=== PATIENT | female | born 1995 | race Caucasian/White ===

== ENCOUNTER 2017-11-02 07:29 | Emergency (ER) | payer BC, MEDICAID ==
[~2017-11-02] VITALS: Ht 170.2 cm; Wt 100.0 kg
[2017-11-02] MEDS ORDERED: ACETAMINOPHEN 325MG TABLET PO ONE (10:45)
[2017-11-02 10:59] VITALS: BP 128/72
== END 2017-11-02 11:01 | disposition home or self-care (01) ==
LOC: ER 07:44
DX: L73.1 Pseudofolliculitis barbae (principal)
CPT/HCPCS: 81025; 99282

== ENCOUNTER 2018-08-20 23:35 | Emergency (ER) | payer BC, MEDICAID ==
[~2018-08-20] VITALS: Ht 170.2 cm; Wt 95.0 kg
[2018-08-21 04:45] VITALS: BP 118/70
== END 2018-08-21 04:45 | disposition home or self-care (01) ==
LOC: ER 23:35
DX: R06.9 Unspecified abnormalities of breathing (principal)
CPT/HCPCS: 71045; 81025; 99283

== ENCOUNTER 2019-11-03 10:10 | Emergency (ER) | payer BC, MEDICAID ==
[~2019-11-03] VITALS: Ht 170.2 cm; Wt 95.0 kg
[2019-11-03] MEDS ORDERED: SODIUM CHLORIDE 0.9% 1,000 ML IV ONE (15:08)
[2019-11-03] MEDS ORDERED: IBUPROFEN 600MG TABLET PO STA (15:08)
[2019-11-03] MEDS ORDERED: ACETAMINOPHEN 325MG TABLET PO STA (15:08)
[2019-11-03 15:29] LABS: CHLORIDE 104 mEq/L (98-107)
[2019-11-03 15:30] LABS: HEMATOCRIT. 37.3 % (36.0-48.0); HEMOGLOBIN. 12.7 g/dL (12.0-16.0); MEAN CORPUSCULAR HEMOGLOBIN 28.9 pg (28.0-32.0); MEAN CORPUSCULAR VOLUME 85.3 fL (81.0-99.0); MEAN PLATELET VOLUME 7.7 fl (7.4-10.4); PLATELET 262 x1000/uL (130-400); RED BLOOD CELL COUNT 4.38 mill/uL (4.2-5.4); RED CELL DISTRIBUTION WIDTH 13.8 % (11.6-14.6)
[2019-11-03 16:22] LABS: PLATELET ESTIMATE NORMAL
[2019-11-03 16:52] LABS: CLARITY URINE CLOUDY (CLEAR); COLOR URINE YELLOW (YELLOW); KETONES URINE 1+ (NEGATIVE); LEUKOCYTE ESTERASE URINE NEGATIVE (NEGATIVE); NITRITE URINE NEGATIVE (NEGATIVE); OCCULT BLOOD URINE TRACE (NEGATIVE); PH URINE 5.5 (4.5-8.0); PROTEIN URINE NEGATIVE (NEGATIVE); SPECIFIC GRAVITY URINE 1.008 (1.005-1.030)
[2019-11-03 17:45] VITALS: BP 120/72
== END 2019-11-03 17:48 | disposition home or self-care (01) ==
LOC: ER 10:10
DX: B34.9 Viral infection, unspecified (principal); R50.9 Fever, unspecified; M79.10 Myalgia, unspecified site; R11.2 Nausea with vomiting, unspecified
CPT/HCPCS: 36415; 71045; 80053; 81003; 81025; 85025; 87040; 87804; 96360; 99285; J7030; 96361

== ENCOUNTER 2019-11-05 11:10 | Emergency (ER) | payer BC, MEDICAID ==
[~2019-11-05] VITALS: Ht 170.2 cm; Wt 97.0 kg
[2019-11-05 11:21] VITALS: BP 143/87
[2019-11-05] MEDS ORDERED: LIDOCAINE 1%/EPI 1:100,000 10 ML VIAL IJ ONE (12:30)
[2019-11-05] MEDS ORDERED: ACETAMINOPHEN 325MG TABLET PO ONE (12:30)
[2019-11-05] MEDS ORDERED: LIDOCAINE HCL/EPINEPHRINE 1%-EPI 1:100,000 20 ML VIAL MC ONE (12:45)
[2019-11-05] MEDS ORDERED: HYDROCODONE/ACETAMINOPHEN 5/325MG TABLET PO ONE (13:15)
[2019-11-05] MEDS ORDERED: CEPHALEXIN 250MG CAPSULE PO ONE (13:15)
== END 2019-11-05 14:06 | disposition home or self-care (01) ==
LOC: ER 13:33
DX: N76.4 Abscess of vulva (principal)
CPT/HCPCS: 99284; J3490

== ENCOUNTER 2021-10-23 19:03 | Emergency (ER) | payer BC, MEDICAID ==
[~2021-10-23] VITALS: Ht 170.2 cm; Wt 105.0 kg
[2021-10-23] MEDS ORDERED: KETOROLAC 60MG/2ML VIAL IM ONE (19:30)
[2021-10-23 20:13] VITALS: BP 141/74
== END 2021-10-23 21:03 | disposition home or self-care (01) ==
LOC: ER 19:03
DX: M25.532 Pain in left wrist (principal); G89.11 Acute pain due to trauma; X50.0XXA Overexertion from strenuous movement or load, initial encounter; Y93.89 Activity, other specified; Y92.89 Other specified places as the place of occurrence of the external cause; Y99.0 Civilian activity done for income or pay
CPT/HCPCS: 29125; 73100; 96372; 99283; J1885